=== PATIENT | female | born 1970 | race African-American/Black ===

== ENCOUNTER 2023-08-21 14:27 | Emergency (ER) | payer MEDICAID ==
[~2023-08-21] VITALS: Ht 170.2 cm; Wt 100.0 kg
[~2023-08-21 14:27] MED LIST: ATOR40TA70 PO; BUSP15TA3 PO; CARV12.545 MT; FURO40TA5 PO; LOSA25TA26 MT; METO2.5T2 MT; METR-167 MT; POTA-205 MT
[2023-08-21 14:45] VITALS: O2SAT 99
[2023-08-21] MEDS ORDERED: CLIN-194 MT (17:08)
[2023-08-21 17:18] VITALS: BP 156/102; PULSE 96; RESP 18; TEMP 98.2
[2023-08-21] MEDS ORDERED: ACET325T52 MT (17:18)
== END 2023-08-21 17:20 | disposition home or self-care (01) ==
LOC: ER 14:38
DX: L03.116 Cellulitis of left lower limb (principal); I10 Essential (primary) hypertension; E78.00 Pure hypercholesterolemia, unspecified; J45.909 Unspecified asthma, uncomplicated; Z94.1 Heart transplant status; Z98.890 Other specified postprocedural states; Z90.49 Acquired absence of other specified parts of digestive tract
CPT/HCPCS: 73590; 93971; 99284